=== PATIENT | male | born 1990 | race Caucasian/White ===

== ENCOUNTER 2020-09-13 07:04 | Day surgery (SDC) | payer BC ==
[~2020-09-13] VITALS: Ht 185.4 cm; Wt 148.3 kg
[2020-09-13 07:45] VITALS: BP 155/110; PULSE 79; TEMP 98
[2020-09-13 08:55] VITALS: BP 142/103; PULSE 66
[2020-09-13 09:10] VITALS: BP 138/98; PULSE 65; TEMP 97.2
--- NOTE | 2020-09-13 09:10 | NUR ---
Patient is sitting up comfortably, tolerating food and drink well. Vital signs stable. Verbalized wanting to be discharged, waiting to speak with doctor about procedure findings.
[2020-09-13 09:25] VITALS: BP 148/98; PULSE 66
--- NOTE | 2020-09-13 09:25 | NUR ---
Vital signs obtained. Blood pressure is high, but consistent with preop baseline. Encourage patient and family to follow-up with primary care. reviewed all discharge instructions, patient and family verbalized understanding. D/C IV with no complications. Instructed patient to dress and then call for transfer to vehicle.
--- NOTE | 2020-09-13 09:31 | NUR ---
Postop vital signs initiated. Patient ambulated to bathroom with steady gait. Patient request Pepsi and muffin. Patient sitting comfortably in bed. Family at bedside.
--- NOTE | 2020-09-13 09:54 | NUR ---
Tranfered patient via wheelchair with to personal vehicle.
[2020-09-13] MEDS ORDERED: RT ADVAIR 528 DISKUS IH (10:07)
[2020-09-13] MEDS ORDERED: SINGULAIR 110 MG/TAB PO (10:08)
[2020-09-13] MEDS ORDERED: PROVENTIL0.09 MG/A1 IH (10:09)
== END 2020-09-13 09:54 | disposition home or self-care (01) ==
LOC: SDCO 07:04
DX: D12.5 Benign neoplasm of sigmoid colon (principal); K62.89 Other specified diseases of anus and rectum; K21.00 Gastro-esophageal reflux disease with esophagitis, without bleeding; K29.70 Gastritis, unspecified, without bleeding; K29.80 Duodenitis without bleeding; J45.909 Unspecified asthma, uncomplicated; E66.01 Morbid (severe) obesity due to excess calories; F17.210 Nicotine dependence, cigarettes, uncomplicated
CPT/HCPCS: J2704; J3010; J7030

== ENCOUNTER → 2020-12-18 | Outpatient (CLI) | payer BC ==
[~2020-12-18] MED LIST: PROVENTIL0.09 MG/A1 IH; RT ADVAIR 528 DISKUS IH; SINGULAIR 110 MG/TAB PO
== END ==
LOC: COL.RAD 06:28
DX: K29.70 Gastritis, unspecified, without bleeding (principal); A04.8 Other specified bacterial intestinal infections
CPT/HCPCS: A9537; J2805